=== PATIENT | male | born 1985 | race Caucasian/White ===

== ENCOUNTER → 2020-12-21 10:18 | Outpatient (BNVA) | payer MEDICAID, SELFPAY | PROVIDERS: PCP Internal Medicine Infectious Disease; Referring Provider Internal Medicine Infectious Disease; Visit Provider Nurse Practitioner | DX: G40.909 Epilepsy, unspecified, not intractable, without status epilepticus (principal); F17.200 Nicotine dependence, unspecified, uncomplicated | CPT/HCPCS: 99204 ==

== ENCOUNTER 2020-12-31 15:30 | Outpatient (CLI) | payer MEDICAID, SELFPAY ==
--- NOTE | 2020-12-31 15:15 | MR_ITS ---
WS: [id number] MRI BRAIN WITH AND WITHOUT CONTRAST HISTORY: G40.909 - Epilepsy, unspecified, not intractable COMPARISON: None available. TECHNIQUE: Multiplanar imaging performed through the brain with MultiHance 20 ml's IV. No acute infarcts are seen. Orozco-white matter differentiation is well preserved. Lobulated mass follo ws CSF on all sequences in the retrocerebellar region. Mass extends over length of 2.8 cm x 3.5 x 1.6 cm. Conforms to the space. Consistent with an arachnoid cyst. No significant mass effect upon the br ain. Small lacunar infarct in the RIGHT internal capsule near the anterior limb. No temporal lobe atrophy. Ventricles and extra-axial spaces are normal. Clivus and pituitary gland are normal. No inferior displacement of cerebellar tonsils. Postcontrast images are negative for masses or vascular malformations. Dural venous sinuses are normal. Paranasal sinuses: Well aerated with no significant disease. Mastoid air cells: LEFT mastoid air cell effusion. Calvarium and scalp: Normal. MR/MR head wo/w con [id number] IMPRESSION: 1. No acute infarct or hemorrhage. 2. Retrocerebellar arachnoid cyst measures 2.8 x 3.5 x 1.6 cm. No significant mass effect upon the cerebellum. 3. Prior lacunar infarct in the RIGHT internal capsule. 4. Symmetric appearance of the temporal lobes.
[2020-12-31] MEDS: gadobenate dimeglumine 20 mL vial IV (16:26)
== END 2020-12-31 15:31 | disposition home or self-care (01) ==
LOC: RADSHAW 15:34
PROVIDERS: PCP Internal Medicine Infectious Disease; Visit Provider Nurse Practitioner
DX: G40.909 Epilepsy, unspecified, not intractable, without status epilepticus (principal); G93.0 Cerebral cysts; I63.81 Other cerebral infarction due to occlusion or stenosis of small artery
CPT/HCPCS: 70553; A9577

== ENCOUNTER → 2021-01-21 10:30 | Outpatient (BNVA) | payer MEDICAID, SELFPAY | PROVIDERS: PCP Internal Medicine Infectious Disease; Referring Provider Nurse Practitioner; Visit Provider Specialist | DX: R56.9 Unspecified convulsions (principal); F17.200 Nicotine dependence, unspecified, uncomplicated | CPT/HCPCS: 95816 ==

== ENCOUNTER 2021-03-12 13:38 | Outpatient (CLI) | payer MEDICAID, SELFPAY ==
--- NOTE | 2021-03-12 13:30 | USCV_ITS ---
Sammy Fisher Age: 35 Gender: M : 1985 Exam Date: 03/12/2021 14:10 Ordering Phys: Alex BonillaP MSN AGACNP-BC Technologist: Anabelle Carias Exam Location: [facility] [place] Indication: CERBRAL INFARCTION Risk Factors: Previous Vascular Surgery: Right Brachial BP: / Left Brachial BP: / Right Left Velocity (cm/s) Spectral Plaque Velocity (cm/s) Spectral Plaque Syst/Diast Broadening Syst/Diast Broadening 143.30/29.80 Prox CCA 159.10/ 30.20 123.50/26.50 Mid CCA 115.70/ 23.70 110.30/14.30 Distal CCA 101.20/ 27.60 55.90/ 10.90 Prox ICA 62.80 / 25.40 83.10/ 18.60 Mid ICA 64.70 / 26.30 76.10/ 27.20 Distal ICA 68.40 / 28.20 87.20 ECA 73.90 0.58 ICA/CCA 0.43 Antegrade Vertebral Antegrade 48.20/ 17.90 cm/s 49.60/ 17.90 cm/s Tri Subclavian Tri 149.9 194.2 0 0 CONCLUSIONS Right ICA stenosis <50%. Left ICA stenosis <50%. Normal antegrade Doppler flow noted in the right vertebral artery. Normal antegrade Doppler flow noted in the left vertebral artery. Jim Francis MD (Electronically Signed) Final Date: 12 March 2021 17:46 S
== END 2021-03-12 13:39 | disposition home or self-care (01) ==
LOC: US 13:39
PROVIDERS: PCP Internal Medicine Infectious Disease; Visit Provider Nurse Practitioner
DX: I63.9 Cerebral infarction, unspecified (principal)
CPT/HCPCS: 93880

== ENCOUNTER → 2021-10-06 08:19 | Outpatient (BNVA) | payer MEDICAID, SELFPAY | PROVIDERS: PCP Internal Medicine Infectious Disease; Visit Provider Specialist | DX: R56.9 Unspecified convulsions (principal); G43.711 Chronic migraine without aura, intractable, with status migrainosus | CPT/HCPCS: 99214 ==